=== PATIENT | male | born 1980 | race Hispanic/Latino ===

== ENCOUNTER 2018-09-01 02:30 | Emergency (ER) | payer OTHER | END 2018-09-01 03:32 | disposition home or self-care (01) | LOC: EDH 02:30 | DX: J33.9 Nasal polyp, unspecified (principal); Z72.0 Tobacco use; Z90.49 Acquired absence of other specified parts of digestive tract ==

== ENCOUNTER 2023-01-25 21:12 | Emergency (ER) | payer OTHER ==
[~2023-01-25] VITALS: Ht 175.3 cm; Wt 93.4 kg
[2023-01-25 21:29] VITALS: BP 131/95
[2023-01-25] MEDS ORDERED: GUAI1TBM19 PO (22:56)
[2023-01-25] MEDS ORDERED: CEFU500T67 PO (22:56)
[2023-01-25] MEDS ORDERED: PRED20TA3 PO (22:56)
== END 2023-01-25 23:26 | disposition home or self-care (01) ==
LOC: EDH 21:12
DX: J02.9 Acute pharyngitis, unspecified (principal); J01.90 Acute sinusitis, unspecified; F17.200 Nicotine dependence, unspecified, uncomplicated; Z90.49 Acquired absence of other specified parts of digestive tract; Z20.822 Contact with and (suspected) exposure to COVID-19
CPT/HCPCS: 99283; 87635; 87880; 87804 ×2; C9803

== ENCOUNTER → 2023-01-25 | Emergency (ER) | payer OTHER ==
[~2023-01-25] VITALS: Ht 175.3 cm; Wt 88.5 kg
[~2023-01-25] MED LIST: CEFU500T67 PO; GUAI1TBM19 PO; PRED20TA3 PO
[2023-01-25 13:29] VITALS: BP 133/93
[2023-01-25 14:06] LABS: BASOPHILS % (AUTO) 0.6 % (0.0-5.0); EOSINOPHILS % (AUTO) 2.9 % (0.0-8.0); HEMATOCRIT 45.4 % (42-54); LYMPHOCYTES % (AUTO) 29.8 % (21.0-51.0); MEAN CORPUSCULAR HEMOGLOBIN 30.2 pg (27.0-33.0); MEAN CORPUSCULAR HGB CONC 34.1 g/dL (32.0-36.0); MEAN CORPUSCULAR VOLUME 88.3 fL (79-99); MONOCYTES % (AUTO) 9.7 % (3.0-13.0); NEUTROPHILS % (AUTO) 56.4 % (40.0-77.0); PLATELET COUNT (AUTO) 222 K/uL (130-400); RED BLOOD CELL COUNT(AUTO) 5.14 MIL/uL (4.50-6.20); RED CELL DISTRIBUTION WIDTH 13.1 % (11.0-15.5); WHITE BLOOD COUNT (AUTO) 10.2 K/uL (4.8-10.8)
[2023-01-25 14:18] LABS: CREATININE 0.9 mg/dL (0.5-1.5); POTASSIUM 4.6 mmol/L (3.5-5.1)
[2023-01-25 14:23] LABS: ALBUMIN 3.8 g/dL (3.5-5.0); TOTAL PROTEIN, SERUM 7.2 g/dL (6.0-8.3)
== END | disposition left against medical advice (07) ==
LOC: EDH 13:27
DX: L02.11 Cutaneous abscess of neck (principal); M54.2 Cervicalgia; Z53.21 Procedure and treatment not carried out due to patient leaving prior to being seen by health care provider
CPT/HCPCS: 36415; 80053; 85025

== ENCOUNTER → 2024-03-25 | Outpatient (CLI) | payer OTHER | END | disposition home or self-care (01) | LOC: RAH 11:30 | PROVIDERS: ATTEND Internal Medicine | DX: Z13.6 Encounter for screening for cardiovascular disorders (principal) | CPT/HCPCS: 75571 ==